=== PATIENT | female | born 1955 | race Caucasian/White ===

== ENCOUNTER 2024-05-05 05:34 | Day surgery (SDC) | payer OTHER, BC ==
[2024-05-04 10:27] VITALS: BMI 20.8
[2024-05-05 10:46] VITALS: TEMP 98.7
[2024-05-05 11:06] VITALS: RESP 16
[2024-05-05 11:21] VITALS: BP 116/74; PULSE 82
== END 2024-05-05 11:35 | disposition home or self-care (01) ==
LOC: JASU-ENDO 05:34
PROVIDERS: ATTEND Internal Medicine Gastroenterology
PROC: 0DJD8ZZ Inspection of Lower Intestinal Tract, Via Natural or Artificial Opening Endoscopic (ICD-10-PCS; principal; 2024-05-05 10:12)
DX: Z12.11 Encounter for screening for malignant neoplasm of colon (principal); K64.8 Other hemorrhoids; R19.5 Other fecal abnormalities